=== PATIENT | female | born 1930 | race Caucasian/White ===

== ENCOUNTER → 2017-05-23 | Outpatient (CLI) | payer MEDICARE ==
[~2017-05-23] MED LIST: ALDACTONE25 MG PO; ASPIRIN325 MG PO; CINNAMON500 MG PO; COQ-10100 MG PO; COREG6.25 MG PO; DIGOX125 MCG PO; GARLIC1 EAC1 PO; HYDRODIURIL12.5 MG PO; LIPITOR40 MG PO; LISINOPRIL-HCT1 EAC1 PO; LOPRESSOR25 MG PO; MAG-OX-400(241400 MG PO; NITROSTAT0.4 MG SL; NORVASC5 MG PO; PLAVIX75 MG PO; PRINIVIL (ZESTRI5 MG PO
== END ==
LOC: GRAD 09:08
DX: R31.29 Other microscopic hematuria (principal); N32.89 Other specified disorders of bladder; N26.1 Atrophy of kidney (terminal)